=== PATIENT | male | born 1985 | race Caucasian/White ===

== ENCOUNTER 2019-05-21 14:33 | Emergency (ER) | payer OTHER, SELFPAY ==
--- NOTE | 2019-05-21 15:24 | RAD ---
RADIOGRAPH RIGHT LEG TIBIA AND FIBULA 2 VIEWS: Date: 05/21/2019 HISTORY: 34-year-old male with right calf pain and swelling. FINDINGS: No periostitis, fracture, permeative lesion, osteolytic lesion, or osteoblastic lesion, involving the tibia or fibula. No soft tissue calcifications or subcutaneous emphysema. IMPRESSION: Negative. POS: OFF
--- NOTE | 2019-05-21 15:45 | ULT ---
Right lower extremity venous Doppler ultrasound 05/21/2019 COMPARISON: None HISTORY: Swelling, pain, edema, assess for DVT TECHNIQUE: Multiplanar grayscale sonographic imaging venous structures right lower extremity obtained with color flow and spectral analysis FINDINGS: Right common femoral vein, greater saphenous vein, profunda femoral vein, femoral vein, pop liteal vein, and posterior tibial vein are patent. Normal blood flow, augmentation, and compression within the deep venous system. No evidence for DVT. IMPRESSION: No evidence for deep venous thrombosis of the right lower extremity.
== END 2019-05-21 16:10 | disposition home or self-care (01) ==
LOC: ERS 14:33
DX: M79.89 Other specified soft tissue disorders (principal); I25.2 Old myocardial infarction